=== PATIENT | male | born 1980 | race Caucasian/White ===

== ENCOUNTER 2020-10-11 18:00 | Emergency (ER) | payer OTHER ==
[2020-10-11 18:04] VITALS: BP 170/100; PULSE 97; TEMP 98.8; BMI 36.6
[2020-10-11] MEDS ORDERED: KETOROLAC TROMETHAMINE 30 MG/1 ML VIAL IM ONE (18:28)
[2020-10-11] MEDS ORDERED: KETOROLAC TROMETHAMINE 30 MG/1 ML VIAL ONE (18:38)
== END 2020-10-11 19:08 | disposition home or self-care (01) ==
LOC: JERFT 18:00
PROC: 3E023GC Introduction of Other Therapeutic Substance into Muscle, Percutaneous Approach (ICD-10-PCS; principal; 2020-10-11)
DX: M54.41 Lumbago with sciatica, right side (principal); V49.40XA Driver injured in collision with unspecified motor vehicles in traffic accident, initial encounter
CPT/HCPCS: 72100-TC-FY; 99284-25